=== PATIENT | female | born 1955 | race Caucasian/White ===

== ENCOUNTER 2018-07-25 09:10 | Outpatient (CLI) | payer OTHER ==
--- NOTE | 2018-08-01 16:18 | MMO ---
BILATERAL MAMMOGRAMS: DATE: 07/25/18 HISTORY: Screening mammography. COMPARISON: Multiple prior exams from [place], [place], dating back to 01/03/14. FINDINGS: Scattered fibroglandular densities. Benign-appearing calcification now evident in the right breast. M etallic marker in the left breast indicates area of prior biopsy. No new dominant mass or suspicious calcifications. The study was evaluated with the assistance of computer-aided detection. IMPRESSION: BIRADS 2: Benign Finding(s) Suggest routine follow-up. POS: LI
== END 2018-07-25 09:11 | disposition home or self-care (01) ==
LOC: SCSMAMMO 09:10
PROVIDERS: ATTEND Family Medicine
DX: Z12.31 Encounter for screening mammogram for malignant neoplasm of breast (principal)
CPT/HCPCS: 77067

== ENCOUNTER 2019-04-23 07:34 | Outpatient (CLI) | payer OTHER ==
--- NOTE | 2019-04-23 08:47 | CT ---
EXAM: CT Pulmonary Lung Scan PROVIDED CLINICAL HISTORY: Tobacco abuse. Patient is a current smoker with smoking history of 30+ years. COMPARISON: None FINDINGS: A calcified granuloma is seen in the lingula. Approximately 3 mm predominantly pleural-based nodular density is seen within the anterior aspect of the right upper lobe (image 49, series 2). There are also small pleural-based densities along the midportion and posterior aspect of the minor fissure. No additional discrete pulmonary nodule or mass is seen, and there is no pleural effusion seen. Lack of intravenous contrast does limit evaluation of the vascular structures and mediastinum, but no enlarged mediastinal lymph nodes are seen by CT size criteria. Vascular calcifications are seen in the aortic arch. A mildly enlarged left axillary lymph node is present measuring 1.3 cm in short axis dimension. Visualized upper abdomen demonstrates a grossly normal nonenhanced CT appearance. Mild degenerative changes are seen in the thoracic spine. Mild right glenohumeral osteoarthropathy is present. IMPRESSION: 1. Lung RADS category 2 - pleural-based nodules right lung. No parenchymal pulmonary nodule is seen. Continued annual screening with low-dose CT scan in 12 months is recommended. 2. Category S - Mildly enlarged nonspecific left axillary lymph node.
== END 2019-04-23 07:35 | disposition home or self-care (01) ==
LOC: CT 07:34
PROVIDERS: ATTEND Family Medicine
DX: F17.210 Nicotine dependence, cigarettes, uncomplicated (principal); R91.8 Other nonspecific abnormal finding of lung field; R59.0 Localized enlarged lymph nodes
CPT/HCPCS: G0297

== ENCOUNTER 2023-06-06 17:00 | Outpatient (CLI) | payer MEDICARE | END 2023-06-06 17:01 | disposition home or self-care (01) | LOC: SLEEPLAB 17:00 | PROVIDERS: ATTEND Family Medicine | DX: G47.33 Obstructive sleep apnea (adult) (pediatric) (principal); R06.83 Snoring; R35.1 Nocturia; J44.9 Chronic obstructive pulmonary disease, unspecified; E66.9 Obesity, unspecified; I10 Essential (primary) hypertension; R53.83 Other fatigue; Z68.39 Body mass index [BMI] 39.0-39.9, adult | CPT/HCPCS: 95810 ==

== ENCOUNTER → 2023-07-08 | Outpatient (CLI) | payer MEDICARE | LOC: SLEEPLAB 17:00 | PROVIDERS: ATTEND Family Medicine | DX: G47.33 Obstructive sleep apnea (adult) (pediatric) (principal); R53.83 Other fatigue; R06.83 Snoring; R35.1 Nocturia; J44.9 Chronic obstructive pulmonary disease, unspecified; I10 Essential (primary) hypertension | CPT/HCPCS: 95811 ==

== ENCOUNTER 2023-09-07 11:58 | Outpatient (CLI) | payer MEDICARE | END 2023-09-07 11:59 | disposition home or self-care (01) | LOC: BICRAD 11:58 | PROVIDERS: ATTEND Family Medicine | DX: M54.50 Low back pain, unspecified (principal); M25.551 Pain in right hip; M47.816 Spondylosis without myelopathy or radiculopathy, lumbar region; M89.38 Hypertrophy of bone, other site; M41.9 Scoliosis, unspecified; M43.17 Spondylolisthesis, lumbosacral region; M43.16 Spondylolisthesis, lumbar region | CPT/HCPCS: 72100 ==

== ENCOUNTER 2025-04-03 13:21 | Outpatient (CLI) | payer MEDICARE, OTHER | END 2025-04-03 13:22 | disposition home or self-care (01) | LOC: BICRAD 13:21 | PROVIDERS: ATTEND Physician Assistant | DX: Z51.81 Encounter for therapeutic drug level monitoring (principal); Z79.899 Other long term (current) drug therapy | CPT/HCPCS: 71046 ==

== ENCOUNTER 2025-07-03 14:56 | Outpatient (CLI) | payer MEDICARE, OTHER | END 2025-07-03 14:57 | disposition home or self-care (01) | LOC: BICCT 14:56 | PROVIDERS: ATTEND Family Medicine | DX: Z12.2 Encounter for screening for malignant neoplasm of respiratory organs (principal); F17.210 Nicotine dependence, cigarettes, uncomplicated; R91.1 Solitary pulmonary nodule; J84.10 Pulmonary fibrosis, unspecified; M47.819 Spondylosis without myelopathy or radiculopathy, site unspecified | CPT/HCPCS: 71271 ==